=== PATIENT | female | born 1945 | race Caucasian/White ===

== ENCOUNTER 2018-06-21 12:50 | Emergency (ER) | payer MEDICARE ==
[2018-06-21] MEDS: Aspirin 81 MG Tab.Chew PO ONE (12:50)
--- NOTE | 2018-06-21 13:24 | EDM.PDOC ---
ED HPI GENERAL MEDICAL PROBLEM - General Stated Complaint: NECK & SHOULDER PAIN Time Seen by Provider: 06/21/18 12:50 Source of Information: Reports: Patient History Limitations: Reports: No Limitations - History of Present Illness INITIAL COMMENTS - FREE TEXT/NARRATIVE: This is a 73yo F with history of HTN controlled on medications here for chest pressure and neck pain with radiation down the left arm since 9am. She denies any shortness of breath and discomfort at this time. There is still chest pressure and arm tenderness and weakness. Onset: Sudden Duration: Day(s):, Constant Location: Reports: Chest ED ROS GENERAL - Review of Systems Review Of Systems: ROS reveals no pertinent complaints other than HPI. ED EXAM, GENERAL - Physical Exam Exam: See Below Exam Limited By: No Limitations General Appearance: Alert, WD/WN, No Apparent Distress Eye Exam: Bilateral Eye: EOMI, PERRL Ears: Normal External Exam Nose: Normal Inspection Throat/Mouth: Normal Inspection Head: Atraumatic, Normocephalic Neck: Normal Inspection Respiratory/Chest: No Respiratory Distress, Lungs Clear, Normal Breath Sounds Cardiovascular: Normal Peripheral Pulses, Regular Rate, Rhythm GI/Abdominal: Normal Bowel Sounds Departure - Departure Time of Disposition: 13:24 Disposition: DC/Tfer to Acute Hospital 02 Reason for Transfer *Q: Primary PCI Indicated Condition: Undetermined Clinical Impression: NSTEMI (non-ST elevated myocardial infarction) Referrals: Gian Solis MD [Primary Care Provider] - - Problem List & Annotations (1) NSTEMI (non-ST elevated myocardial infarction) SNOMED Code(s): 727522338 Code(s): I21.4 - NON-ST ELEVATION (NSTEMI) MYOCARDIAL INFARCTION Status: Acute Priority: High Current Visit: Yes - Problem List Review Problem List Initiated/Reviewed/Updated: Yes - Assessment/Plan Assessment:: Discussion with cardiology Dr. De and Dr. Cuevas. Patient to be transferred [facility] to [place]. Start on heparin, plavix, atorvastatin, lopressor asa and nitro as needed.
[2018-06-21] MEDS: Clopidogrel 75 MG Tab PO ONE (13:39)
[2018-06-21] MEDS: Metoprolol Tartrate 25 MG Tab PO ONE (13:39)
[2018-06-21] MEDS ORDERED: Heparin Sodium/D5W 25,000 UNITS/500 ML BAG IV SCH (13:45)
[2018-06-21] MEDS: Clopidogrel 75 MG Tab ONE (13:48)
[2018-06-21] MEDS: atorvaSTATin 80 MG Tab PO ONE (13:48)
[2018-06-21] MEDS: Metoprolol Tartrate 25 MG Tab ONE (13:48)
[2018-06-21 14:34] VITALS: BP 155/67
== END 2018-06-21 15:00 ==
LOC: LB.ED 12:50
DX: I21.4 Non-ST elevation (NSTEMI) myocardial infarction (principal)
CPT/HCPCS: 99284; 99285; A9270-GY